=== PATIENT | female | born 2005 | race Caucasian/White ===

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

== ENCOUNTER 2024-01-20 10:11 | Emergency (ER) | payer OTHER ==
[~2024-01-20] VITALS: Ht 170.2 cm; Wt 99.0 kg
[~2024-01-20 10:11] MED LIST changes: +DICY-61 PO; +ETON68IM SC; +FLUO-290; -FLUO10CA18; +KETO10TAB PO
[2024-01-20] MEDS ORDERED: IBUP200C25 PO (10:37)
[2024-01-20] MEDS ORDERED: VITAD400CA FT (10:37)
[2024-01-20] MEDS ORDERED: FLUO20CA22 (10:37)
[2024-01-20] MEDS: ACETAMINOPHEN 500 MG TAB PO ONE (12:02)
[2024-01-20] MEDS: NS 1,000 ML IV ONE (12:03)
[2024-01-20 13:53] VITALS: BP 122/69; TEMP 97.9; O2SAT 100
== END 2024-01-20 13:54 | disposition home or self-care (01) ==
LOC: M ED 10:11
DX: G43.909 Migraine, unspecified, not intractable, without status migrainosus (principal); E86.0 Dehydration; Z91.018 Allergy to other foods; F32.A Depression, unspecified; F41.9 Anxiety disorder, unspecified; F12.90 Cannabis use, unspecified, uncomplicated

== ENCOUNTER → 2024-02-22 | Outpatient (CLI) | payer OTHER ==
[~2024-02-22] MED LIST changes: +FLUO-365; +IBUP200C25 PO; +VITAD400CA FT
== END ==
LOC: M PLARAD 15:06
PROVIDERS: ATTEND Student in an Organized Health Care Education/Training Program
DX: R51.9 Headache, unspecified (principal)

== ENCOUNTER → 2024-12-03 | Outpatient (CLI) | payer OTHER ==
[2024-12-03 19:15] LABS: HCG, SERUM QUALITATIVE NEGATIVE (NEGATIVE)
[2024-12-03 19:35] LABS: HEMOGLOBIN A1c 4.8 % (4.0-6.0)
== END ==
LOC: M PLALAB 16:02
PROVIDERS: ATTEND Nurse Practitioner Family
DX: N91.1 Secondary amenorrhea (principal)

== ENCOUNTER → 2025-05-06 | Outpatient (REF) | payer OTHER ==
[2025-05-06 14:26] LABS: Trichomonas vaginalis (AMP) NOT DETECTED (NEGATIVE)
[2025-05-06 14:50] LABS: GC DNA AMPLIFICATION NEGATIVE (NEGATIVE)
== END ==
LOC: M LAB REF 12:05
PROVIDERS: ATTEND Physician Assistant
DX: Z79.899 Other long term (current) drug therapy (principal); N77.1 Vaginitis, vulvitis and vulvovaginitis in diseases classified elsewhere